=== PATIENT | male | born 1950 | race Caucasian/White ===

== ENCOUNTER 2016-04-24 11:59 | Observation (INO) | payer MEDICARE ==
[~2016-04-24] VITALS: Ht 177.8 cm; Wt 74.0 kg
[2016-04-24 12:04] VITALS: BP 163/80; PULSE 72; RESP 20; TEMP 97.4; O2SAT 99
--- NOTE | 2016-04-24 14:23 | PD ---
HPI Chief Complaint: Edema Stated Complaint: EVAC/MEDICAL Time Seen by Provider: 14:23 Travel History International Travel<30 days: No Contact w/Intl Traveler<30days: No Known affected area: No History of Present Illness HPI 66-year-old male who is an overall poor historian and hard of hearing, presents emergency department for evaluation of swollen lower extremities and swollen testicles worsening over the last 4 days. Patient states that he has been taking Lasix 80 mg daily to help with the edema but it has not seemed to improve. He denies any significant pain. He has intermittent shortness of breath with activity but states this is normal for him. No chest pain or tightness. No recent illnesses, fever, or chills. Patient repeats frequently that he was hospitalized here in February and again in March however medical record does not support this. Patient also mentions [facility] but does not provide information on why he is involved with hospice. Denies any urinary symptoms. Reports no nausea or vomiting. He has no other symptoms to report. He is requesting a sandwich and something to drink. History Past Medical History Medical History: Denies Significant Hx Social History Alcohol Use: No Tobacco Use: No Allergies-Medications (Allergen,Severity, Reaction): Coded Allergies: UNOBTAINABLE (Unverified , 04/24/16) Reported Meds & Prescriptions Reported Meds & Active Scripts Active Reported Mapap (Acetaminophen) 325 Mg Tab 650 Mg PO Q6HR PRN Lasix (Furosemide) 40 Mg Tab 40 Mg PO DAILY Lisinopril 5 Mg Tab 5 Mg PO DAILY Aspirin EC (Aspirin) 81 Mg Tabdr 81 Mg PO DAILY Coreg (Carvedilol) 3.125 Mg Tab 3.125 Mg PO BID Review of Systems Except as stated in HPI: all other systems reviewed are Neg Physical Exam Exam Limitations: Poor Historian Narrative GENERAL: Well nourished, elderly male patient, sitting in his wheelchair with a bizarre affect; head phones in place with a microphone assistive hearing device ; in no acute distress SKIN: Warm and dry. HEAD: Atraumatic. Normocephalic. EYES: Pupils equal and round. No scleral icterus. No injection or drainage. ENT: No nasal bleeding or discharge. Mucous membranes pink and moist. NECK: Trachea midline. No JVD. CARDIOVASCULAR: Regular rate and rhythm. No murmur appreciated. RESPIRATORY: No accessory muscle use. Coarse, diminished. Breath sounds equal bilaterally. GENITOURINARY: Assessment in presence of female RN. Testes descended bilaterally with moderate edema. No lesions or erythema. GASTROINTESTINAL: Abdomen soft, non-tender, nondistended. Hepatic and splenic margins not palpable. MUSCULOSKELETAL: No obvious deformities. No clubbing. No cyanosis. 2+ lower extremity edema with mild erythema. Distal pulses are palpable.. PSYCHIATRIC: Bizarre mood and affect Data Data Last Documented VS Vital Signs Date Time Temp Pulse Resp B/P Pulse Ox O2 Delivery O2 Flow Rate FiO2 04/24/16 18:03 76 17 174/99 100 Room Air 04/24/16 12:04 97.4 Orders Complete Blood Count With Diff (04/24/16 14:23) Basic Metabolic Panel (Bmp) (04/24/16 14:23) B-Type Natriuretic Peptide (04/24/16 14:23) Act Partial Throm Time (Ptt) (04/24/16 14:23) Prothrombin Time / Inr (Pt) (04/24/16 14:23) Ckmb (Isoenzyme) Profile (04/24/16 14:23) Troponin I (04/24/16 14:23) Urinalysis - C+S If Indicated (04/24/16 14:23) Electrocardiogram (04/24/16 14:23) Chest, Single Ap (04/24/16 14:23) Us Testicles W Doppler (04/24/16 ) Furosemide Inj (Lasix Inj) (04/24/16 17:30) Admit Order (Ed Use Only) (04/24/16 18:31) Place In Observation (04/24/16 ) Vital Signs (Adult) Q4H (04/24/16 18:31) ^ Linen Room Attendant / Telemetry (04/24/16 18:31) Intake + Output MARIE.Q8H (04/24/16 18:31) ^ Restrictions (04/24/16 18:31) Diet Heart Healthy (04/24/16 Dinner) Diet 1800 Ada Cons Carb (04/24/16 Dinner) Electrolyte Panel (Lytes) (04/25/16 06:00) Magnesium (Mg) (04/24/16 18:31) Hepatic Functional Panel (04/24/16 18:31) Troponin I (04/24/16 18:31) Troponin I (04/25/16 00:31) Echo 2d Comp W/Dopp(Routine) (04/24/16 ) Resp Oxygen Jameson C Titrat 1-4 L (04/24/16 ) Sodium Chloride 0.9% Flush (Ns Flush) (04/24/16 18:45) Sodium Chloride 0.9% Flush (Ns Flush) (04/24/16 21:00) Furosemide Inj (Lasix Inj) (04/25/16 09:00) Heparin Inj (Heparin Inj) (04/24/16 18:45) Scd Bilateral/Knee High MARIE.BID (04/24/16 18:31) Labs Laboratory Tests Test 04/24/16 14:20 Prothrombin Time 11.9 SEC Prothromb Time International 1.1 RATIO Ratio Activated Partial 27.4 SEC Thromboplast Time Sodium Level 132 MEQ/L Potassium Level 4.4 MEQ/L Chloride Level 98 MEQ/L Carbon Dioxide Level 26.0 MEQ/L Anion Gap 8 MEQ/L Blood Urea Nitrogen 38 MG/DL Creatinine 1.38 MG/DL Estimat Glomerular Filtration 51 ML/MIN Rate Random Glucose 287 MG/DL Calcium Level 9.2 MG/DL Total Creatine Kinase 78 U/L Troponin I 0.02 NG/ML B-Type Natriuretic Peptide 1675 PG/ML MDM Medical Decision Making Medical Screen Exam Complete: Yes Emergency Medical Condition: Yes Medical Record Reviewed: Yes Differential Diagnosis Fluid overload versus electrolyte abnormality versus hydrocele versus varicocele versus testicular torsion versus hernia Narrative Course 66-year-old male presents to the emergency department for evaluation of lower extremity edema and testicular swelling worsening over last 4 days. He is also requesting a sandwich and something to drink. She has a bizarre affect and is very hard of hearing. He is a poor historian. Workup is initiated in triage. Once a medical bed becomes available, patient will be transferred to that pod for care. 1610 I spoke with Laura from [facility]. She informs me that pt was discharged from Hospice service last week because he had plans to move to [place] where his family is, but pt did not get on the bus to go. She said pt was on hospice service due to end stage COPD and the patient has history of non- compliance. She provides me with a sister's (Agata) phone number [phone]. Chest x-ray shows moderate pleural effusion with minimal failure on the left. CBC is still pending. BNP is with hyponatremia 132. BUN is elevated at 38. Creatinine is 1.38. Glucose is 257. BNP is 1675. I spoke with Dr. Abreu. CBC has yet to be complete despite multiple requests and call to the lab. Patient will be admitted observation to [facility]. Diagnosis Primary Impression: Bilateral lower extremity edema Additional Impressions: Testicle swelling Congestive heart failure Qualified Code: I50.9 - Acute on chronic congestive heart failure, unspecified congestive heart failure type Condition: Stable Yessenia Valderrama Apr 24, 2016 14:23
[2016-04-24 14:49] LABS: APTT (PATIENT) 27.4 SEC (24.3-30.1); INTERNATIONAL NORMALIZED RATIO 1.1 RATIO; PROTHROMBIN TIME - PATIENT 11.9 SEC (9.8-11.6)
[2016-04-24 14:54] LABS: POTASSIUM 4.4 MEQ/L (3.5-5.1)
--- NOTE | 2016-04-24 15:04 | RADRPT ---
EXAM DATE/TIME: 04/24/2016 14:33 [facility] COMPARISON: No previous studies available for comparison. INDICATIONS : Short of breath. Lower extremity edema. MEDICAL HISTORY : None. SURGICAL HISTORY : None. ENCOUNTER: Initial ACUITY: 1 day PAIN SCORE: 0/10 LOCATION: Bilateral chest Moderate effusion is present on the left. The right lung is clear. The heart is minimally enlarged. There is mild pulmonary congestion. CONCLUSION: Moderate pleural effusion on the left with minimal failure.. Erickson Steiner MD FACR on April 24, 2016 at 15:01 Board Certified Radiologist. This report was verified electronically.
--- NOTE | 2016-04-24 16:14 | EKG ---
Date Performed: 04/24/2016 Time Performed: 14:36:29 PTAGE: 66 years EKG: Sinus rhythm POSSIBLE LEFT ATRIAL ENLARGEMENT LOW QRS VOLTAGE IN EXTREMITY LEADS ANTEROLATERAL MYOCARDIAL INFARCT ION ABNORMAL ECG I would repeat electrocardiogram to make sure that there is no limb lead reversal. NO PREVIOUS TRACING DOCTOR: Catracho Mena Interpretating Date/Time 04/24/2016 16:12:18
--- NOTE | 2016-04-24 17:26 | RADRPT ---
EXAM DATE/TIME: 04/24/2016 15:57 [facility] COMPARISON: No previous studies available for comparison. INDICATIONS : Testicular swelling. MEDICAL HISTORY : Cardiac and respiratory disorders. Testicular swelling. SURGICAL HISTORY : None. ENCOUNTER: Initial ACUITY: 1 day PAIN SCORE: 6/10 LOCATION: Bilateral scrotum. MEASUREMENTS: RIGHT TESTICLE: 2.3 x 4.0 x 4.5 cm LEFT TESTICLE: 5.2 x 3.2 x 5.3 cm FINDINGS: RIGHT TESTICLE: Diffusely moderately heterogeneous echotexture. Relatively diminished Doppler blood flow. Small hydro kristen. LEFT TESTICLE: Mildly heterogeneous echotexture. Intact Doppler flow. Small hydrocele. SCROTUM: Within normal limits. CONCLUSION: No evidence of acute torsion. Diffusely heterogeneous testicular echotexture, particularly on the right without discrete mass. Diff erential considerations would include chronic benign appearance related to prior insult, orchitis, di ffuse neoplastic infiltration. Correlation and followup recommended as indicated. José Manuel Smith MD on April 24, 2016 at 17:18 Board Certified Radiologist. This report was verified electronically.
[2016-04-24] MEDS ORDERED: FUROSEMIDE 40 MG/4 ML VIAL IV PUSH ONE (17:30)
[2016-04-24 18:03] VITALS: BP 174/99; PULSE 76; RESP 17; O2SAT 100
[2016-04-24] MEDS ORDERED: ASPI81TA11 PO (18:28)
[2016-04-24] MEDS ORDERED: CARV3.125 PO (18:28)
[2016-04-24] MEDS ORDERED: MAPA325T PO (18:28)
[2016-04-24] MEDS ORDERED: LISI-519 PO (18:28)
[2016-04-24] MEDS ORDERED: FURO1TAB60 PO (18:28)
[2016-04-24] MEDS ORDERED: SODIUM CHLORIDE 0.9% FLUSH 5 ML FLUSH IVF PRN (18:45)
[2016-04-24 18:48] LABS: AUTOMATED NEUTROPHIL # 5.3 TH/MM3 (1.8-7.7); BASOPHIL # 0.1 TH/MM3 (0-0.2); BASOPHIL % 1.2 % (0.0-2.0); EOSINOPHIL # 0.3 TH/MM3 (0-0.4); EOSINOPHIL % 4.1 % (0.0-4.0); HEMATOCRIT 32.6 % (39.0-51.0); HEMO FLAGS DIFF FINAL; LYMPH % 14.8 % (9.0-44.0); LYMPHOCYTE # 1.1 TH/MM3 (1.0-4.8); MEAN CELL VOLUME 77.2 FL (80.0-100.0); MEAN CORPUSCULAR HEMOGLOBIN 25.2 PG (27.0-34.0); MEAN CORPUSCULAR HGB CONC 32.6 % (32.0-36.0); MONO % 7.8 % (0.0-8.0); NEUT % 72.1 % (16.0-70.0); PLATELET COUNT 302 TH/MM3 (150-450); RED BLOOD COUNT 4.23 MIL/MM3 (4.50-5.90); RED CELL DISTRIBUTION WIDTH 17.7 % (11.6-17.2); WHITE BLOOD COUNT 7.4 TH/MM3 (4.0-11.0)
[2016-04-24 19:03] LABS: BLOOD, URINE NEG (NEG); COMMENT (UR) CULT NOT INDICATED; CULTURE IF INDICATED CULT NOT INDICATED; GLUCOSE,URINE 300 mg/dL (NEG); HYALINE CAST, URINE 1 /lpf (RARE); KETONE, URINE NEG (NEG); NITRITE,URINE NEG (NEG); PH, URINE 5.5 (5.0-8.5); SQUAMOUS EPITHELIAL CELL URINE 1 /hpf (0-5); URINE COLOR YELLOW (YELLW/STRAW)
--- NOTE | 2016-04-24 19:31 | PD ---
Physical Exam Narrative GENERAL: Well-nourished, well-developed patient. SKIN: Warm and dry. HEAD: Normocephalic EYES: No injection or drainage. ENT: No nasal drainage noted. NECK: Supple, trachea midline. CARDIOVASCULAR: Regular rate and rhythm RESPIRATORY: No increased effort. No accessory muscle use. NEUROLOGICAL: Awake and alert. Moves all extremities. Normal speech. Data Data Last Documented VS Vital Signs Date Time Temp Pulse Resp B/P Pulse Ox O2 Delivery O2 Flow Rate FiO2 04/24/16 18:03 76 17 174/99 100 Room Air 04/24/16 12:04 97.4 Orders Complete Blood Count With Diff (04/24/16 14:23) Basic Metabolic Panel (Bmp) (04/24/16 14:23) B-Type Natriuretic Peptide (04/24/16 14:23) Act Partial Throm Time (Ptt) (04/24/16 14:23) Prothrombin Time / Inr (Pt) (04/24/16 14:23) Ckmb (Isoenzyme) Profile (04/24/16 14:23) Troponin I (04/24/16 14:23) Urinalysis - C+S If Indicated (04/24/16 14:23) Electrocardiogram (04/24/16 14:23) Chest, Single Ap (04/24/16 14:23) Us Testicles W Doppler (04/24/16 ) Furosemide Inj (Lasix Inj) (04/24/16 17:30) Admit Order (Ed Use Only) (04/24/16 18:31) Place In Observation (04/24/16 ) Vital Signs (Adult) Q4H (04/24/16 18:31) ^ Rotary Dryer Operator / Telemetry (04/24/16 18:31) Intake + Output MARIE.Q8H (04/24/16 18:31) ^ Restrictions (04/24/16 18:31) Diet Heart Healthy (04/24/16 Dinner) Diet 1800 Ada Cons Carb (04/24/16 Dinner) Electrolyte Panel (Lytes) (04/25/16 06:00) Magnesium (Mg) (04/24/16 18:31) Hepatic Functional Panel (04/24/16 18:31) Troponin I (04/24/16 18:31) Troponin I (04/25/16 00:31) Echo 2d Comp W/Dopp(Routine) (04/24/16 ) Resp Oxygen Jameson C Titrat 1-4 L (04/24/16 ) Sodium Chloride 0.9% Flush (Ns Flush) (04/24/16 18:45) Sodium Chloride 0.9% Flush (Ns Flush) (04/24/16 21:00) Furosemide Inj (Lasix Inj) (04/25/16 09:00) Heparin Inj (Heparin Inj) (04/24/16 21:00) Scd Bilateral/Knee High MARIE.BID (04/24/16 18:31) Labs Laboratory Tests Test 04/24/16 04/24/16 14:20 18:25 Prothrombin Time 11.9 SEC Prothromb Time International 1.1 RATIO Ratio Activated Partial 27.4 SEC Thromboplast Time Sodium Level 132 MEQ/L Potassium Level 4.4 MEQ/L Chloride Level 98 MEQ/L Carbon Dioxide Level 26.0 MEQ/L Anion Gap 8 MEQ/L Blood Urea Nitrogen 38 MG/DL Creatinine 1.38 MG/DL Estimat Glomerular Filtration 51 ML/MIN Rate Random Glucose 287 MG/DL Calcium Level 9.2 MG/DL Total Creatine Kinase 78 U/L Troponin I 0.02 NG/ML B-Type Natriuretic Peptide 1675 PG/ML Urine Color YELLOW Urine Turbidity CLEAR Urine pH 5.5 Urine Specific [place] 1.013 Urine Protein TRACE mg/dL Urine Glucose (UA) 300 mg/dL Urine Ketones NEG mg/dL Urine Occult Blood NEG Urine Nitrite NEG Urine Bilirubin NEG Urine Urobilinogen LESS THAN 2.0 MG/DL Urine Leukocyte Esterase NEG Urine WBC LESS THAN 1 /hpf Urine Squamous Epithelial 1 /hpf Cells Urine Hyaline Casts 1 /lpf Microscopic Urinalysis Comment CULT NOT INDICATED [facility] Supervised Visit with SARAH: Yes Interpretation(s) CBC & BMP Diagram 04/24/16 14:20 Last 24 hours Impressions Chest X-Ray 04/24/16 1423 Signed Impressions: Service Date/Time: Sunday, April 24, 2016 14:33 - CONCLUSION: Moderate pleural effusion on the left with minimal failure.. Erickson Steiner MD FACR Scrotum Ultrasound 04/24/16 0000 Signed Impressions: Service Date/Time: Sunday, April 24, 2016 15:57 - CONCLUSION: No evidence of acute torsion. Diffusely heterogeneous testicular echotexture, particularly on the right without discrete mass. Differential considerations would include chronic benign appearance related to prior insult, orchitis, diffuse neoplastic infiltration. Correlation and followup recommended as indicated. José Manuel Smith MD bnp significantly elevated Narrative Course I, Dr. roy, have reviewed the advance practice practitioner's documentation and am in agreement, met with the patient face to face, made the diagnosis, and the medical decision making was done by me. *My assessment and Findings: 66-year-old male presents with bilateral lower extremity edema. He presents in CHF exacerbation and will be admitted for further care. Patient agrees to this and questions were answered. ordered lasix and nitro paste Diagnosis Primary Impression: Bilateral lower extremity edema Additional Impressions: Testicle swelling Congestive heart failure Qualified Code: I50.9 - Acute on chronic congestive heart failure, unspecified congestive heart failure type Pleural effusion Admitting Information Admitting Physician Requests: Observation Condition: Stable Radha Roy MD Apr 24, 2016 19:31
[2016-04-24] MEDS ORDERED: NITROGLYCERIN 2% OINT 1 GM PACKET TOP ONE (19:45)
--- NOTE | 2016-04-24 20:13 | HHI.HP ---
[facility] No Primary Care Physician Admission Diagnosis CHF EXACERBATION Diagnoses: Chief Complaint: Bilateral lower extremity and testical swelling Travel History International Travel<30 Days: No Contact w/Intl Traveler <30 Da: No Traveled to Known Affected Are: No History of Present Illness 66 y/o male is a poor historian and was unable to provide his history, he kept saying just call my sister. Spoke with the sister over the phone and she states he recently had a valve replacement and cannot And came to [place] in late January for the winter. While in [place] he had some complications and was taken to [facility] in [place], was found to be in CHF and COPD exacerbation. He was discharged from there and sent [facility] rehabilitation and then was discharged home. Up until last week he was on hospice with [facility] apparently for end-stage COPD, patient's wishes were not to be in a nursing facility, and family was trying to get him to move to [place]. Hospice was stopped one week ago so patient could move to [place], according to the patient's sister then lost contact with him for the last few days and he apparently never got on the bus to move. Patient is very hard of hearing and uses a amplifier in headphones to communicate, at this time he was unable to answer any questions and was not cooperative. Patient's sister stated she would like to speak with somebody regarding options placement once patient is discharged. According to the ER reports patient came in complaining of swollen lower extremities and bilateral testicles for the last 4 days, currently on Lasix at home with no improvement. Review of Systems ROS Limitations: Uncooperative, Poor Historian (patient is uncooperative and a poor historian at this time and is unable to provide ROS) Past Family Social History Past Medical History Per patient's sister: CHF Hypertension COPD Past Surgical History Per patient's sister: Valve replacement 2015 Reported Medications Current Medications Medications (Trade) Dose Ordered Sig/Willie Route Start Time Stop Time Status Last Admin (NS Flush) 2 ml UNSCH PRN IVF 04/24/16 18:45 (NS Flush) 2 ml BID IVF 04/24/16 21:00 (Lasix Inj) 40 mg BID@,18 IVP 04/25/16 09:00 (Heparin Inj) 5,000 units Q8H SQ 04/24/16 21:00 Allergies: Coded Allergies: UNOBTAINABLE (Unverified , 04/24/16) Active Ordered Medications Current Medications Medications (Trade) Dose Ordered Sig/Willie Route Start Time Stop Time Status Last Admin (NS Flush) 2 ml UNSCH PRN IVF 04/24/16 18:45 (NS Flush) 2 ml BID IVF 04/24/16 21:00 (Lasix Inj) 40 mg BID@,18 IVP 04/25/16 09:00 (Heparin Inj) 5,000 units Q8H SQ 04/24/16 21:00 Family History According to sister there is no family history Social History According to the sister patient does not use use tobacco alcohol or illicit drugs. Physical Exam Vital Signs Vital Signs Date Time Temp Pulse Resp B/P Pulse Ox O2 Delivery O2 Flow Rate FiO2 04/24/16 18:03 76 17 174/99 100 Room Air 04/24/16 12:04 97.4 72 20 163/80 99 Room Air Physical Exam GENERAL: This is a well-nourished, uncooperative patient. SKIN: No rashes, ecchymoses or lesions. Cool and dry. HEAD: Atraumatic. Normocephalic. EYES: Pupils equal round and reactive. ENT: Nose without bleeding, purulent drainage or septal hematoma. Airway patent. NECK: Trachea midline. No JVD CARDIOVASCULAR: Regular rate and rhythm without murmurs, gallops, or rubs. RESPIRATORY: Clear to auscultation. Breath sounds equal bilaterally. No wheezes , rales, or rhonchi. GASTROINTESTINAL: Abdomen soft, non-tender, nondistended. MUSCULOSKELETAL: +2 pitting bilateral lower extremity edema. No joint tenderness , effusion, or edema noted. No calf tenderness. NEUROLOGICAL: Awake and uncooperative. Poor historian, hard of hearing. Normal speech. Laboratory Laboratory Tests Test 04/24/16 04/24/16 04/24/16 14:20 18:25 18:37 Prothrombin Time 11.9 Prothromb Time International 1.1 Ratio Activated Partial 27.4 Thromboplast Time Sodium Level 132 Potassium Level 4.4 Chloride Level 98 Carbon Dioxide Level 26.0 Anion Gap 8 Blood Urea Nitrogen 38 Creatinine 1.38 Estimat Glomerular Filtration 51 Rate Random Glucose 287 Calcium Level 9.2 Total Creatine Kinase 78 Troponin I 0.02 B-Type Natriuretic Peptide 1675 Urine Color YELLOW Urine Turbidity CLEAR Urine pH 5.5 Urine Specific [place] 1.013 Urine Protein TRACE Urine Glucose (UA) 300 Urine Ketones NEG Urine Occult Blood NEG Urine Nitrite NEG Urine Bilirubin NEG Urine Urobilinogen LESS THAN 2.0 Urine Leukocyte Esterase NEG Urine WBC LESS THAN 1 Urine Squamous Epithelial 1 Cells Urine Hyaline Casts 1 Microscopic Urinalysis Comment CULT NOT INDICATED White Blood Count 7.4 Red Blood Count 4.23 Hemoglobin 10.6 Hematocrit 32.6 Mean Corpuscular Volume 77.2 Mean Corpuscular Hemoglobin 25.2 Mean Corpuscular Hemoglobin 32.6 Concent Red Cell Distribution Width 17.7 Platelet Count 302 Mean Platelet Volume 7.9 Neutrophils (%) (Auto) 72.1 Lymphocytes (%) (Auto) 14.8 Monocytes (%) (Auto) 7.8 Eosinophils (%) (Auto) 4.1 Basophils (%) (Auto) 1.2 Neutrophils # (Auto) 5.3 Lymphocytes # (Auto) 1.1 Monocytes # (Auto) 0.6 Eosinophils # (Auto) 0.3 Basophils # (Auto) 0.1 CBC Comment DIFF FINAL Differential Comment Result Diagram: 04/24/16 1837 04/24/16 1420 Imaging Last Impressions Chest X-Ray 04/24/16 1423 Signed Impressions: Service Date/Time: Sunday, April 24, 2016 14:33 - CONCLUSION: Moderate pleural effusion on the left with minimal failure.. Erickson Steiner MD FACR Scrotum Ultrasound 04/24/16 0000 Signed Impressions: Service Date/Time: Sunday, April 24, 2016 15:57 - CONCLUSION: No evidence of acute torsion. Diffusely heterogeneous testicular echotexture, particularly on the right without discrete mass. Differential considerations would include chronic benign appearance related to prior insult, orchitis, diffuse neoplastic infiltration. Correlation and followup recommended as indicated. José Manuel Smith MD Assessment and Plan Problem List: (1) Acute exacerbation of CHF (congestive heart failure) ICD Code: I50.9 Status: Acute (2) Testicle swelling ICD Code: N50.89 Status: Acute (3) Bilateral lower extremity edema ICD Code: R60.0 Status: Acute Assessment and Plan 66-year-old man who is a poor historian with a history of CHF, hypertension, COPD presented with: CHF exacerbation Images reviewed: Chest x-ray shows moderate pleural effusion on the left with minimal failure -Lasix 40 mg IV given in the ED, then 40 mg IV ordered BID -Fluid restriction -2-D echo pending -Restart home medications Coreg Testicular swelling Images reviewed: Scrotal ultrasound shows No evidence of acute torsion. Diffusely heterogeneous testicular echotexture, particularly on the right without discrete mass. Differential considerations would include chronic benign appearance related to prior insult, orchitis, diffuse neoplastic infiltration. Correlation and followup recommended as indicated. -Consult urology recommendations Lower extremity edema, likely due to CHF Labs reviewed BNP 1675 -Continue diuretics DVT prophylaxis: Heparin Consult placed to case management for assistance in placement. Written by Franci ROMERO, acting as scribe for Dr. Webster on 04/24/16 at 2103. The documentation accurately reflects the work performed [id number] and decisions made by me and the physician Dr Webster on 04/24/16. The documentation accurately reflects the work performed [id number] by me Dr Webster on 04/24/16. Discussed Condition With pt, nurse, ED physician Franci Desouza Apr 24, 2016 20:13 Karine Webster MD Apr 24, 2016 23:22
[2016-04-24] MEDS: SODIUM CHLORIDE 0.9% FLUSH 5 ML FLUSH IVF SCH (21:46)
[2016-04-24] MEDS: HEPARIN SODIUM - SQ 10,000 UNITS/ML VIAL SQ SCH (21:46)
[2016-04-24 21:49] VITALS: BP 128/75; PULSE 82; RESP 18; O2SAT 100
[2016-04-24] MEDS: CARVEDILOL 3.125 MG TAB PO SCH (22:31)
[2016-04-24 23:30] LABS: INDIRECT BILIRUBIN 0.6 MG/DL (0.0-0.8); MAGNESIUM 1.9 MG/DL (1.5-2.5); TOTAL BILIRUBIN ADULT 0.7 MG/DL (0.2-1.0)
[2016-04-24 23:54] VITALS: BP 137/64; PULSE 78; RESP 20; TEMP 98.2; O2SAT 98
[2016-04-25] VITALS (9 sets, daily range): BP systolic 104–164; BP diastolic 54–90; PULSE 51–85; RESP 16–20; TEMP 96–98.6; O2SAT 93–100
[2016-04-25] MEDS: HEPARIN SODIUM - SQ 10,000 UNITS/ML VIAL SQ SCH ×3 (04:48→21:44)
[2016-04-25 05:01] LABS: BICARBONATE 23.9 MEQ/L (21.0-32.0); POTASSIUM 4.1 MEQ/L (3.5-5.1)
[2016-04-25] MEDS: CARVEDILOL 3.125 MG TAB PO SCH ×2 (09:06→21:44)
[2016-04-25] MEDS: FUROSEMIDE 40 MG/4 ML VIAL IVP SCH ×2 (09:06→17:30)
[2016-04-25] MEDS: SODIUM CHLORIDE 0.9% FLUSH 5 ML FLUSH IVF SCH ×2 (09:06→21:46)
--- NOTE | 2016-04-25 11:46 | HHI.PR ---
Subjective Remarks Patient has strange behavior when I entered the room "I'm smart, you wearing white coat and a status, and you must have had more training than the others" Poor historian, patient distracted while giving history on many occasions, however I could understand from him that he had scrotal swelling with a leg swelling since last February, and that his primary care physician is in managing his diuretic Today sitting on the edge of the bed, having his headphones on, doesn't seem to be in distress, denied chest pain or short of breath Objective Vitals Vital Signs Date Time Temp Pulse Resp B/P Pulse Ox O2 Delivery O2 Flow Rate FiO2 04/25/16 08:52 97.3 77 16 143/83 95 04/25/16 04:07 98.6 79 20 120/69 96 04/25/16 03:59 75 04/24/16 23:54 98.2 78 20 137/64 98 04/24/16 21:49 82 18 128/75 100 Room Air 04/24/16 18:03 76 17 174/99 100 Room Air 04/24/16 12:04 97.4 72 20 163/80 99 Room Air I/O 04/24/16 04/24/16 04/24/16 04/25/16 04/25/16 04/25/16 06:59 14:59 22:59 06:59 14:59 22:59 Intake Total 240 ml Output Total 150 ml 350 ml Balance -150 ml -110 ml Intake Oral 240 ml Output Urine Total 150 ml 350 ml # Voids 1 Result Diagram: 04/24/16 1837 04/25/16 0422 Objective Remarks GENERAL: This is a well-nourished, well-developed patient, in no apparent distress. SKIN: No rashes, warm and dry HEAD: Atraumatic. Normocephalic. EYES: Pupils equal round and reactive. Extraocular motions intact. No scleral icterus. ENT: Nose without bleeding, or drainage, Airway patent. NECK: Trachea midline. Supple CARDIOVASCULAR: Regular rate and rhythm without murmurs, gallops, or rubs. RESPIRATORY: Fair air entry bilaterally. No wheezes, rales, or rhonchi. GASTROINTESTINAL: Abdomen soft, non-tender, nondistended. Positive bowel sounds MUSCULOSKELETAL: +2 pitting edema. Bilateral lower extremity Pedal pulses appreciated NEUROLOGICAL: Awake and alert. Moves all extremity. Normal speech.no focal neurological deficit : Scrotum swelling, nontender A/P Problem List: (1) Acute exacerbation of CHF (congestive heart failure) ICD Code: I50.9 Status: Acute (2) Testicle swelling ICD Code: N50.89 Status: Acute (3) Bilateral lower extremity edema ICD Code: R60.0 Status: Acute Assessment and Plan 66-year-old man who is a poor historian with a history of CHF, hypertension, COPD presented with: CHF exacerbation with anasarca Images reviewed: Chest x-ray shows moderate pleural effusion on the left with minimal failure -Lasix 40 mg IV given in the ED, then 40 mg IV ordered BID -Fluid restriction -2-D echo pending -Restart home medications Coreg -Monitor BMP and BNP daily Scrotum swelling Images reviewed: Scrotal ultrasound shows No evidence of acute torsion. Diffusely heterogeneous testicular echotexture, particularly on the right without discrete mass. Due to chronicity and not improving on outpatient diuresis -Consult urology recommendations Lower extremity edema, likely due to CHF Labs reviewed BNP 1675 -Continue diuretics, daily monitor BMP and BNP DVT prophylaxis: Heparin Consult placed to case management for assistance in placement. Windy Abreu MD Apr 25, 2016 11:46
--- NOTE | 2016-04-25 15:39 | PD.CONS ---
HPI Service Urology Consult Requested By Reason for Consult Scrotal swelling Primary Care Physician No Primary Care Physician Diagnosis: (1) Acute exacerbation of CHF (congestive heart failure) ICD Code: I50.9 (2) Testicle swelling ICD Code: N50.89 (3) Bilateral lower extremity edema ICD Code: R60.0 History of Present Illness Consulted to evaluate this 66 year-old gentleman admitted with congestive heart failure for evaluation regarding scrotal swelling. Patient apparently has had problems with swelling of his lower extremities and scrotum for several days prior to admission. Patient had been taken 80 mg of Lasix daily for generalized edema without improvement. A scrotal ultrasound study was performed that demonstrated a heterogeneous echotexture to both testicles of indeterminate significance. There was no evidence of discrete masses. There was no evidence of testicular torsion or hydrocele formation. Review of Systems ROS Limitations: Poor Historian Constitutional: DENIES: Fever, Chills Gastrointestinal: DENIES: Abdominal pain Genitourinary: DENIES: Urinary frequency, Urinary incontinence, Urgency, Hematuria, Dysuria Musculoskeletal: DENIES: Back pain Past Family Social History Past Medical History Probable CHF history although denied by patient Past Surgical History Denies any prior significant surgical history Reported Medications Refer to EMR Allergies: Coded Allergies: UNOBTAINABLE (Unverified , 04/24/16) Active Ordered Medications Refer to EMR Family History Reviewed and noncontributory Social History Denies tobacco, alcohol or intravenous drug abuse Physical Exam Vital Signs Vital Signs Date Time Temp Pulse Resp B/P Pulse Ox O2 Delivery O2 Flow Rate FiO2 04/25/16 12:01 97.5 85 18 141/78 98 04/25/16 10:28 93 21 04/25/16 08:52 97.3 77 16 143/83 95 04/25/16 04:07 98.6 79 20 120/69 96 04/25/16 03:59 75 04/24/16 23:54 98.2 78 20 137/64 98 04/24/16 21:49 82 18 128/75 100 Room Air 04/24/16 18:03 76 17 174/99 100 Room Air Physical Exam GENERAL: Appears stated age and in no apparent distress. SKIN: No rashes, ecchymoses or lesions. Cool and dry. HEAD: Atraumatic. Normocephalic. No temporal or scalp tenderness. EYES: Pupils equal round and reactive. Extraocular motions intact. No scleral icterus. No injection or drainage. ENT: Nose without bleeding, purulent drainage or septal hematoma. NECK: Trachea midline. No JVD or lymphadenopathy. Supple, nontender, no meningeal signs. GASTROINTESTINAL: Abdomen soft, non-tender, nondistended. No hepato-splenomegaly , or palpable masses. No guarding. : Normal phallus, scrotum enlarged and edematous, nontender to palpation. MUSCULOSKELETAL: Edema noted to bilateral lower extremities NEUROLOGICAL: Awake and alert. Cranial nerves II through XII intact. Motor and sensory grossly within normal limits. Normal speech. Laboratory Laboratory Tests Test 04/24/16 04/24/16 04/24/16 04/25/16 18:25 18:37 22:25 04:22 Urine Color YELLOW Urine Turbidity CLEAR Urine pH 5.5 Urine Specific [place] 1.013 Urine Protein TRACE Urine Glucose (UA) 300 Urine Ketones NEG Urine Occult Blood NEG Urine Nitrite NEG Urine Bilirubin NEG Urine Urobilinogen LESS THAN 2.0 Urine Leukocyte Esterase NEG Urine WBC LESS THAN 1 Urine Squamous Epithelial 1 Cells Urine Hyaline Casts 1 Microscopic Urinalysis Comment CULT NOT INDICATED White Blood Count 7.4 Red Blood Count 4.23 Hemoglobin 10.6 Hematocrit 32.6 Mean Corpuscular Volume 77.2 Mean Corpuscular Hemoglobin 25.2 Mean Corpuscular Hemoglobin 32.6 Concent Red Cell Distribution Width 17.7 Platelet Count 302 Mean Platelet Volume 7.9 Neutrophils (%) (Auto) 72.1 Lymphocytes (%) (Auto) 14.8 Monocytes (%) (Auto) 7.8 Eosinophils (%) (Auto) 4.1 Basophils (%) (Auto) 1.2 Neutrophils # (Auto) 5.3 Lymphocytes # (Auto) 1.1 Monocytes # (Auto) 0.6 Eosinophils # (Auto) 0.3 Basophils # (Auto) 0.1 CBC Comment DIFF FINAL Differential Comment Magnesium Level 1.9 Total Bilirubin 0.7 Direct Bilirubin 0.1 Indirect Bilirubin 0.6 Aspartate Amino Transf 57 (AST/SGOT) Alanine Aminotransferase 38 (ALT/SGPT) Alkaline Phosphatase 273 Troponin I 0.02 0.02 Total Protein 7.3 Albumin 2.8 Sodium Level 132 Potassium Level 4.1 Chloride Level 98 Carbon Dioxide Level 23.9 Anion Gap 10 Result Diagram: 04/24/16 1837 04/25/16 0422 Imaging Scrotal ultrasound with findings as outlined above Assessment and Plan Assessment and Plan UROLOGIC IMPRESSION: Abnormal findings on US of indeterminant etiology. May be related to longstanding edema. RECOMENDATIONS: #1 Conservative management for now #2 Office f/u in 6 weeks for re-evaluation with repeat scrotal US Harinder Nelson MD Apr 25, 2016 15:39
--- NOTE | 2016-04-25 17:23 | EC ---
Study Study Date:04/25/2016 STUDY CONCLUSIONS SUMMARY - Left ventricle: The cavity size was normal. Wall thickness was normal. Systolic function was moderately to severely reduced. The estimated ejection fraction was in the range of 30% to 35%. Wall motion was normal; there were no regional wall motion abnormalities. - Aortic valve: Valve area: 2.31cm^2(VTI). Valve area: 2.25cm^2 (Vmax). - Mitral valve: A prosthesis was present and functioning normally. The prosthesis had a normal range of motion. The sewing ring appeared normal, had no rocking motion, and showed no evidence of dehiscence. Valve area by continuity equation (using LVOT flow): 0.96cm^2. - Tricuspid valve: Mild-moderate regurgitation. - Pericardium, extracardiac: There was a left pleural effusion. If LV function is below 40, please consider prescribing an ACEI or ARB or document rationale for non-use. PROCEDURE DATA STUDY STATUS: Elective. Procedure: Transthoracic echocardiography. Image quality was good. Scanning was performed from the parasternal, apical, and subcostal acoustic windows. Study completion: The patient tolerated the procedure well. Transthoracic echocardiography. M-mode, complete 2D, complete spectral Doppler, and color Doppler. Height: Height: 70in. Weight: Weight: 162.7lb. Body mass index: BMI: 23.4kg/m^2. Body surface area: BSA: 1.91m^2. Patient status: Inpatient. CARDIAC ANATOMY LEFT VENTRICLE: The cavity size was normal. Wall thickness was normal. Systolic function was moderately to severely reduced. The estimated ejection fraction was in the range of 30% to 35%. Wall motion was normal; there were no regional wall motion abnormalities. AORTIC VALVE: Trileaflet; normal thickness leaflets. Doppler: Transvalvular velocity was within the normal range. There was no stenosis. No regurgitation. Valve area: 2.31cm^2(VTI). Indexed valve area: 1.21cm^2/m^2 (VTI). Valve area: 2.25cm^2 (Vmax). Indexed valve area: 1.18cm^2/m^2 (Vmax). Mean gradient: 2mm Hg (S). AORTA: Aortic root: The aortic root was normal in size. MITRAL VALVE: A prosthesis was present and functioning normally. The prosthesis had a normal range of motion. The sewing ring appeared normal, had no rocking motion, and showed no evidence of dehiscence. Leaflet separation was normal. Doppler: Transvalvular velocity was within the normal range. There was no evidence for stenosis. No regurgitation. Valve area by continuity equation (using LVOT flow): 0.96cm^2. Indexed valve area by continuity equation (using LVOT flow): 0.5cm^2/m^2. Mean gradient: 5mm Hg (D). Peak gradient: 14mm Hg (D). LEFT ATRIUM: The atrium was normal in size. RIGHT VENTRICLE: The cavity size was normal. Wall thickness was normal. PULMONIC VALVE: Doppler: Transvalvular velocity was within the normal range. There was no evidence for stenosis. No regurgitation. TRICUSPID VALVE: Structurally normal valve. Doppler: Transvalvular velocity was within the normal range. Mild-moderate regurgitation. PULMONARY ARTERY: The main pulmonary artery was normal-sized. Systolic pressure was within the normal range. RIGHT ATRIUM: The atrium was normal in size. PERICARDIUM: There was no pericardial effusion. SYSTEMIC VEINS: Inferior vena cava: The vessel was normal in size. Pleura: There was a left pleural effusion. Patient weight: 162.7lb _Ejection fraction:_ 65-75% _Fractional shortening:_ 32% up to 5Kg 5-11.5Kg 11.6-22.9Kg 23-45Kg 45-57Kg Aortic Root 7-13 <17 13-22 17-27 17-27 LA diam 6-13 <23 24-38 33-47 37-40 RVID 10-17 7-15 7-15 7-18 8-17 LVIDd 12-22 <32 24-38 33-47 37-40 LVPW 2-4 3-6 5-7 6-8 7-8 IVS 2-4 3-6 5-7 6-8 7-8 BASIC MEASUREMENTS ADULT NORMAL Left ventricle LV internal dimension, ED, chordal 50.9 mm 43-52 level, PLAX LV internal dimension, ES, chordal *45.1 mm 23-38 level, PLAX Fractional shortening, chordal level, *11 % >29 PLAX LV posterior wall thickness, ED 7.11 mm IVS/LVPW ratio, ED *1.37 <1.3 Ventricular septum Septal thickness, ED 9.77 mm Aortic valve Leaflet separation 19 mm 15-26 Aorta Root diameter, ED 31 mm Right ventricle RV internal dimension, ED, PLAX 37.9 mm 19-38 BASIC MEASUREMENTS ADULT NORMAL Aortic valve Leaflet separation 19 mm 15-26 DOPPLER MEASUREMENTS ADULT NORMAL Aortic valve Peak velocity, S 86.9 cm/s Mean velocity, S 62.3 cm/s VTI, S 39.8 cm Mean gradient, S 2 mm Hg Valve area, VTI 2.31 cm^2 Valve area index, VTI 1.21 cm^2/m^2 Valve area, Vmax 2.25 cm^2 Valve area index, Vmax 1.18 cm^2/m^2 Mitral valve Peak E-wave velocity 175 cm/s Peak A-wave velocity 71.4 cm/s Mean velocity, D 103 cm/s Mean gradient, D 5 mm Hg Peak gradient, D 14 mm Hg Peak E/A ratio 2.5 Valve area, LVOT continuity 0.96 cm^2 Valve area index, LVOT continuity 0.5 cm^2/m^2 Tricuspid valve Regurgitant peak velocity 376 cm/s Peak RV-RA gradient, S 57 mm Hg Pulmonic valve Peak velocity, S 35.5 cm/s LEGEND: Mean values are shown as u=mean value. Asterisk (*) henley values outside specified normal range. Prepared and signed by Mayank Magallon [id number]
[2016-04-26] VITALS (8 sets, daily range): BP systolic 118–148; BP diastolic 58–79; PULSE 74–89; RESP 18–22; TEMP 96.1–98.7; O2SAT 94–99
[2016-04-26] MEDS: HEPARIN SODIUM - SQ 10,000 UNITS/ML VIAL SQ SCH ×3 (05:21→22:10)
[2016-04-26] MEDS: ASPIRIN EC 81 MG TABEC PO SCH (09:25)
[2016-04-26] MEDS: CARVEDILOL 3.125 MG TAB PO SCH ×2 (09:25→22:09)
[2016-04-26] MEDS: SODIUM CHLORIDE 0.9% FLUSH 5 ML FLUSH IVF SCH ×2 (09:26→22:10)
[2016-04-26] MEDS: FUROSEMIDE 40 MG/4 ML VIAL IVP SCH ×2 (09:26→17:01)
--- NOTE | 2016-04-26 11:17 | HHI.PR ---
Subjective Remarks patient sitting on the bed he is having headphones on, is kind of talking to the wall, when I talked to her E partially has a question, positive time is nonecoherent Denied chest pain, short of breath, we'll continue with diuresis, seen by urology recommended follow-up as an outpatient Objective Vitals Vital Signs Date Time Temp Pulse Resp B/P Pulse Ox O2 Delivery O2 Flow Rate FiO2 04/26/16 09:15 97.7 76 18 138/75 97 04/26/16 04:30 96.1 89 18 148/75 94 04/26/16 02:24 80 04/26/16 00:11 97.1 78 22 136/79 94 04/25/16 19:37 96.0 82 18 137/81 100 04/25/16 16:32 97.6 84 16 164/90 95 04/25/16 12:01 97.5 85 18 141/78 98 I/O 04/25/16 04/25/16 04/25/16 04/26/16 04/26/16 04/26/16 07:00 15:00 23:00 07:00 15:00 23:00 Intake Total 240 ml 800 ml 100 ml Output Total 350 ml 450 ml Balance -110 ml 800 ml 100 ml -450 ml Intake Oral 240 ml 800 ml 100 ml Output Urine Total 350 ml 450 ml # Voids 3 1 2 Result Diagram: 04/24/16 1837 04/25/16 0422 Objective Remarks GENERAL: This is a well-nourished, well-developed patient, in no apparent distress. SKIN: No rashes, warm and dry HEAD: Atraumatic. Normocephalic. EYES: Pupils equal round and reactive. Extraocular motions intact. No scleral icterus. ENT: Nose without bleeding, or drainage, Airway patent. NECK: Trachea midline. Supple CARDIOVASCULAR: Regular rate and rhythm without murmurs, gallops, or rubs. RESPIRATORY: Fair air entry bilaterally. No wheezes, rales, or rhonchi. GASTROINTESTINAL: Abdomen soft, non-tender, nondistended. Positive bowel sounds MUSCULOSKELETAL: +2 pitting edema. Bilateral lower extremity Pedal pulses appreciated NEUROLOGICAL: Awake and alert. Moves all extremity. Normal speech.no focal neurological deficit : Scrotum swelling, nontender A/P Problem List: (1) Acute exacerbation of CHF (congestive heart failure) ICD Code: I50.9 Status: Acute (2) Testicle swelling ICD Code: N50.89 Status: Acute (3) Bilateral lower extremity edema ICD Code: R60.0 Status: Acute Assessment and Plan 66-year-old man who is a poor historian with a history of CHF, hypertension, COPD presented with: CHF exacerbation with anasarca Images reviewed: Chest x-ray shows moderate pleural effusion on the left with minimal failure -Lasix 40 mg IV given in the ED, then 40 mg IV ordered BID -Fluid restriction -2-D echo showed ejection fraction 30-35% -Restart home medications Coreg -Monitor BMP and BNP daily, with electrolyte New-onset diabetes mellitus -Patient had blood glucose reading of 400 -We'll start Accu-Chek with insulin sliding scale, diabetic diet, diabetic education, check A1c, will start basal insulin accordingly Scrotum swelling Images reviewed: Scrotal ultrasound shows No evidence of acute torsion. Diffusely heterogeneous testicular echotexture, particularly on the right without discrete mass. Due to chronicity and not improving on outpatient diuresis -appreciate urology consultations, recommended follow-up in 6 weeks Lower extremity edema, likely due to CHF Labs reviewed BNP 1675 -Continue diuretics, daily monitor BMP and BNP DVT prophylaxis: Heparin Consult placed to case management for assistance in placement. Windy Abreu MD Apr 26, 2016 11:17
[2016-04-26 12:50] LABS: BICARBONATE 27.8 MEQ/L (21.0-32.0); POTASSIUM 4.8 MEQ/L (3.5-5.1)
[2016-04-26] MEDS ORDERED: DEXTROSE 50% IN WATER 50 ML VIAL(D50) IV PUSH PRN (13:45)
[2016-04-26] MEDS ORDERED: GLUCAGON 1 MG/ML VIAL OTHER PRN (13:45)
[2016-04-26] MEDS: INSULIN ASPART SUPPLEMENTAL SCALE SQ SCH ×2 (14:20→17:02)
[2016-04-26 14:39] LABS: BICARBONATE 29.9 MEQ/L (21.0-32.0); POTASSIUM 4.5 MEQ/L (3.5-5.1)
--- NOTE | 2016-04-26 14:54 | PD.CONS ---
Provisional Diagnosis Admission Date Apr 24, 2016 at 18:33 [place] I. Adjustment disorder with disturbance of conduct History of Present Illness Service Psychiatry Consult Requested By Primary Care Physician No Primary Care Physician HPI The patient is a 66 years old man, self reported homeless, has been living in a motel for the last 2 months, he is originally from [place], single, unemployed, without any previous psychiatric history, no previous psychiatric hospitalizations, no previous suicidal attempts, medical history of CHF, he is legally blind, hard of hearing has to use an amplifier, under observation in the hospital due to decompensation of CHF, consulted to psychiatry due to aggressive behavior and agitation. On psychiatric evaluation patient was found irritable, very loud, kind of disorganized, but he was able to be redirected. Once his patient has his amplifier on communication became effective, he was redirectable. Patient explains that he is the happiest person in the world, he denies depression, denies anxiety, denies perceptual disturbances, denies suicidal or homicidal ideation, but he doesn't like to be repeated over and over the same information. Patient says that he has never seen a psychiatrist before, and he did not come to the hospital or for mental health, but to 3 his heart. He says that the reason he has been mad with the staff is because people, touching without asking his permission, he says that he is blind, but he does not like to be invaded in his personal space. Today many people have have come to getting information, "some of this people talk really fast and a half patience for a blind hard of hearing person and is the reason he become upset". During this evaluation the patient does not present any disorganized behavior or speech, paranoia, delusions, flight of ideas, aggressive behavior or agitation. At times during the evaluation patient is become irritable and intrusive, but he can be redirected easily. The patient denies the use of alcohol and illicit drugs. Patient is fully oriented 3, he is coherent, relevant, logical, no gross cognitive impairment is observed. Review of Systems Constitutional: COMPLAINS OF: Weight loss Endocrine: DENIES: Heat/cold intolerance, Polydipsia, Polyuria, Polyphagia Respiratory: DENIES: Apneas, Cough, Snoring, Wheezing, Hemoptysis, Sputum production, Shortness of breath Cardiovascular: COMPLAINS OF: Palpitations, Orthopnea, Claudication Gastrointestinal: DENIES: Abdominal pain, Black stools, Bloody stools, Constipation, Diarrhea, Nausea, Vomiting, Difficulty Swallowing, Anorexia Genitourinary: COMPLAINS OF: Urinary incontinence, Testicular Swelling, DENIES : Sexual dysfunction, Urinary frequency, Urgency, Hematuria, Dysuria, Nocturia, Penile Discharge, Testicular Pain Musculoskeletal: DENIES: Joint pain, Muscle aches, Stiffness, Joint Swelling, Back pain, Neck pain Integumentary: DENIES: Abnormal pigmentation, Nail changes, Pruritus, Rash Hematologic/lymphatic: DENIES: Bruising, Lymphadenopathy Immunologic/allergic: DENIES: Eczema, Urticaria Neurologic: DENIES: Abnormal gait, Headache, Localized weakness, Paresthesias, Seizures, Speech Problems, Tremor, Poor Balance Psychiatric: DENIES: Anxiety, Confusion, Mood changes, Depression, Hallucinations, Agitation, Suicidal Ideation, Homicidal Ideation, Delusions Other Eyes, blindness due to diabetic retinopathy. Past Family Social History Coded Allergies: UNOBTAINABLE (Unverified , 04/24/16) Reported Medications Acetaminophen (Mapap)325 Mg Hco499 Mg PO Q6HR PRN (PAIN) Ref 0 04/24/16 Furosemide (Lasix)40 Mg Tab40 Mg PO DAILY #30 TAB Ref 0 04/24/16 Lisinopril 5 Mg Tab5 Mg PO DAILY #30 TAB Ref 0 04/24/[address] (Aspirin EC)81 Mg Tabdr81 Mg PO DAILY Ref 0 04/24/16 Carvedilol (Coreg)3.125 Mg Tab3.125 Mg PO BID #60 TAB Ref 0 04/24/16 Current Medications Medications (Trade) Dose Ordered Sig/Willie Route Start Time Stop Time Status Last Admin (NS Flush) 2 ml UNSCH PRN IVF 04/24/16 18:45 (NS Flush) 2 ml BID IVF 04/24/16 21:00 04/26/16 09:26 (Lasix Inj) 40 mg BID@,18 IVP 04/25/16 09:00 04/26/16 09:26 (Heparin Inj) 5,000 units Q8H SQ 04/24/16 21:00 04/26/16 14:21 (Coreg) 3.125 mg BID PO 04/24/16 22:00 04/26/16 09:25 (Ecotrin Ec) 81 mg DAILY PO 04/26/16 09:00 04/26/16 09:25 (D50w (Vial) Inj) 25 ml UNSCH PRN IV PUSH 04/26/16 13:45 (Glucagon Inj) 1 mg UNSCH PRN OTHER 04/26/16 13:45 Family History He denies Social History Patient was born and raised in [place], he came to [place] in January 2016 , he has been living in [facility], he says he has no family, Physical Exam Vital Signs Vital Signs Date Time Temp Pulse Resp B/P Pulse Ox O2 Delivery O2 Flow Rate FiO2 04/26/16 12:49 99 04/26/16 09:15 97.7 76 18 138/75 04/25/16 10:28 21 04/24/16 21:49 Room Air I/O 04/25/16 04/25/16 04/26/16 08:00 16:00 00:00 Intake Total 240 ml 900 ml Output Total 350 ml Balance -110 ml 900 ml Mental Status Examination Appearance Skinny white male, age appearing, good hygiene, [facility], cooperative, but irritable Speech: Unremarkable Orientation: x3 Memory: Unremarkable Thought Process: Logical Thought Content: Unremarkable Hallucination Type: None Suicidal Ideation: No Previous Suicide Attempts: No Homicidal Ideation: No Previous Homicide Attempts: No Insight: Fair Judgement: Impulsive Affect: Irritable Mood: Angry Motor Activity: Normal gait Assessment & Plan Problem List: (1) Adjustment disorder with disturbance of conduct Assessment & Plan: On psychiatric evaluation patient is quite irritable, little bit agitated and loud, but redirectable. Once patient has on his hearing aid, and was redirected, he became, cooperative. Patient denies depressive symptoms, anxiety, perceptual disturbances and and simón. No paranoia, delusions, aggressive behavior, agitation, flight of ideas, could be elicited during this evaluation. Patient does not need any immediate psychiatric intervention at this moment. Medication for anxiety and to prevent agitation was offered to the patient, but he declined. My impression is that due to patient's perceptual and sensory limitation can become easily overwhelmed and frustrated and this is the reason he becomes irritable and verbally hostile. Patient doesn't meet criteria for psychiatric admission. If patient becomes aggressive, or disorganized needing immediate psychiatric intervention, please call psychiatrist on-call during the weekend, Dr. Guillen, \\ [phone]. Consul appreciated. ICD Code: F43.24 Assessment & Plan Estimated LOS: days Cesar Wade MD Apr 26, 2016 14:54
[2016-04-26 17:17] LABS: HEMOGLOBIN A1a 1.9 %; HEMOGLOBIN A1b 1.3 %; HEMOGLOBIN Ao 71.8 %; HEMOGLOBIN F 2.2 %; HEMOGLOBIN LA1C 4.5 %; HEMOGLOBIN P3 8.9 %
[2016-04-26] MEDS ORDERED: ACETAMINOPHEN/HYDROcodone 325 MG/5 MG TAB PO PRN (17:45)
[2016-04-27] VITALS (7 sets, daily range): BP systolic 108–141; BP diastolic 53–79; PULSE 72–78; RESP 18–21; TEMP 97.7–98.2; O2SAT 96–98
[2016-04-27] MEDS: HEPARIN SODIUM - SQ 10,000 UNITS/ML VIAL SQ SCH ×3 (06:45→21:50)
[2016-04-27] MEDS: INSULIN ASPART SUPPLEMENTAL SCALE SQ SCH ×4 (06:46→21:51)
[2016-04-27] MEDS: CARVEDILOL 3.125 MG TAB PO SCH ×2 (08:58→21:49)
[2016-04-27] MEDS: ASPIRIN EC 81 MG TABEC PO SCH (08:58)
[2016-04-27] MEDS: FUROSEMIDE 40 MG/4 ML VIAL IVP SCH ×2 (08:59→17:43)
[2016-04-27] MEDS: SODIUM CHLORIDE 0.9% FLUSH 5 ML FLUSH IVF SCH ×2 (09:11→21:49)
--- NOTE | 2016-04-27 13:00 | HHI.PR ---
Subjective Remarks Patient has usual sitting on a chair having his hearing aid which looks like headphones, talking nonstop to unknown person When I start asking him questions he become agitated and his answers are unpleasant But I could understand that he feels better and his swelling is better Objective Vitals Vital Signs Date Time Temp Pulse Resp B/P Pulse Ox O2 Delivery O2 Flow Rate FiO2 04/27/16 10:56 97.7 72 18 127/79 96 04/27/16 07:41 97.9 74 18 112/71 96 04/27/16 04:37 98.0 77 18 108/53 98 04/27/16 04:35 73 04/27/16 00:26 97.8 78 18 141/72 98 04/26/16 19:30 98.7 74 18 118/58 97 04/26/16 15:29 97.7 75 18 133/72 99 I/O 04/26/16 04/26/16 04/26/16 04/27/16 04/27/16 04/27/16 07:00 15:00 23:00 07:00 15:00 23:00 Intake Total 960 ml 480 ml Output Total 450 ml 200 ml Balance -450 ml 760 ml 480 ml Intake Oral 960 ml 480 ml Output Urine Total 450 ml 200 ml # Voids 2 3 2 Result Diagram: 04/24/16 1837 04/26/16 1341 Objective Remarks GENERAL: This is a well-nourished, well-developed patient, in no apparent distress. SKIN: No rashes, warm and dry HEAD: Atraumatic. Normocephalic. EYES: Pupils equal round and reactive. Extraocular motions intact. No scleral icterus. ENT: Nose without bleeding, or drainage, Airway patent. NECK: Trachea midline. Supple CARDIOVASCULAR: Regular rate and rhythm without murmurs, gallops, or rubs. RESPIRATORY: Fair air entry bilaterally. No wheezes, rales, or rhonchi. GASTROINTESTINAL: Abdomen soft, non-tender, nondistended. Positive bowel sounds MUSCULOSKELETAL: +2 pitting edema. Bilateral lower extremity Pedal pulses appreciated NEUROLOGICAL: Awake and alert. Moves all extremity. Normal speech.no focal neurological deficit : Scrotum swelling, nontender A/P Problem List: (1) Acute exacerbation of CHF (congestive heart failure) ICD Code: I50.9 Status: Acute (2) Testicle swelling ICD Code: N50.89 Status: Acute (3) Bilateral lower extremity edema ICD Code: R60.0 Status: Acute Assessment and Plan 66-year-old man who is a poor historian with a history of CHF, hypertension, COPD presented with: CHF exacerbation with anasarca Images reviewed: Chest x-ray shows moderate pleural effusion on the left with minimal failure -In tinea with Lasix 40 mg BID -Fluid restriction 1500 , -2-D echo showed ejection fraction 30-35% -Restart home medications Coreg -Monitor BMP and BNP daily, with electrolyte, monitor I&O New-onset uncontrolled diabetes mellitus -hb A1c 11.1 -Start Levemir insulin 7 units twice a day -Patient had blood glucose reading of 400 -Start Accu-Chek with insulin sliding scale, diabetic diet, diabetic education , Scrotum swelling Images reviewed: Scrotal ultrasound shows No evidence of acute torsion. Diffusely heterogeneous testicular echotexture, particularly on the right without discrete mass. Due to chronicity and not improving on outpatient diuresis -appreciate urology consultations, recommended follow-up in 6 weeks Lower extremity edema, likely due to CHF Labs reviewed BNP 1675 -Continue diuretics, daily monitor BMP and BNP DVT prophylaxis: Heparin Consult placed to case management for assistance in placement. Windy Abreu MD Apr 27, 2016 13:00
[2016-04-27 14:34] LABS: BICARBONATE 29.7 MEQ/L (21.0-32.0); POTASSIUM 4.3 MEQ/L (3.5-5.1)
[2016-04-27] MEDS: INSULIN DETEMIR 100 UNITS/ML VIAL SQ SCH (21:50)
[2016-04-28] VITALS (10 sets, daily range): BP systolic 107–139; BP diastolic 59–77; PULSE 65–78; RESP 18–20; TEMP 97.5–98; O2SAT 93–99
[2016-04-28] MEDS: HEPARIN SODIUM - SQ 10,000 UNITS/ML VIAL SQ SCH ×3 (05:10→21:38)
[2016-04-28] MEDS: INSULIN ASPART SUPPLEMENTAL SCALE SQ SCH ×4 (05:14→21:47)
[2016-04-28 08:52] LABS: AUTOMATED NEUTROPHIL # 4.1 TH/MM3 (1.8-7.7); BASOPHIL # 0.1 TH/MM3 (0-0.2); BASOPHIL % 1.7 % (0.0-2.0); EOSINOPHIL # 0.3 TH/MM3 (0-0.4); EOSINOPHIL % 4.8 % (0.0-4.0); HEMATOCRIT 30.2 % (39.0-51.0); HEMO FLAGS DIFF FINAL; LYMPH % 20.8 % (9.0-44.0); LYMPHOCYTE # 1.3 TH/MM3 (1.0-4.8); MEAN CORPUSCULAR HEMOGLOBIN 25.2 PG (27.0-34.0); MEAN CORPUSCULAR HGB CONC 33.1 % (32.0-36.0); MONO % 9.2 % (0.0-8.0); NEUT % 63.5 % (16.0-70.0); PLATELET COUNT 310 TH/MM3 (150-450); RED BLOOD COUNT 3.97 MIL/MM3 (4.50-5.90); RED CELL DISTRIBUTION WIDTH 17.5 % (11.6-17.2); WHITE BLOOD COUNT 6.4 TH/MM3 (4.0-11.0)
[2016-04-28 09:16] LABS: BICARBONATE 29.6 MEQ/L (21.0-32.0); MAGNESIUM 1.9 MG/DL (1.5-2.5); POTASSIUM 4.3 MEQ/L (3.5-5.1)
[2016-04-28] MEDS: CARVEDILOL 3.125 MG TAB PO SCH ×2 (10:49→21:37)
[2016-04-28] MEDS: FUROSEMIDE 40 MG/4 ML VIAL IVP SCH ×2 (10:49→18:21)
[2016-04-28] MEDS: INSULIN DETEMIR 100 UNITS/ML VIAL SQ SCH ×2 (10:49→21:38)
[2016-04-28] MEDS: ASPIRIN EC 81 MG TABEC PO SCH (10:49)
[2016-04-28] MEDS: NICOTINE 14 MG/24 HR PATCH TD SCH (10:49)
[2016-04-28] MEDS: SODIUM CHLORIDE 0.9% FLUSH 5 ML FLUSH IVF SCH ×2 (10:50→21:37)
--- NOTE | 2016-04-28 10:59 | HHI.PR ---
Subjective Remarks Follow up on congestive heart failure Patient today seems to be less unpleasant from other days I could have some productive discussion with him, I let him to this time to wear his ear buds to start conversation He's telling me his scrotal swelling improved which indeed was much better than when he first came Leg swelling still there but coming down, he stated he feels that better than before Psychiatrist asked the patient no need for psychiatry intervention, however must occupation is having agitation and frustration due to perceptual and sensory limitation D/W rn case manager hospice, patient doesn't have a place he lives in a motel, he is from [place], she talk to his family over there, to have somebody to come over to take care of the patient, he still under observation status, rn case manager hospice will advise me about further addressing of his status. Order PT OT, walk test, we'll continue diuresing, hopefully able to discharge in 1 or 2 days if able to arrange safe discharge for him Objective Vitals Vital Signs Date Time Temp Pulse Resp B/P Pulse Ox O2 Delivery O2 Flow Rate FiO2 04/28/16 07:38 97.8 68 18 107/67 96 04/28/16 04:41 98.0 77 18 121/72 97 04/28/16 02:15 65 04/27/16 20:30 98.2 78 21 127/67 98 04/27/16 15:28 97.8 74 18 126/74 96 04/27/16 10:56 97.7 72 18 127/79 96 Result Diagram: 04/28/16 0739 04/28/16 0739 Imaging Last Impressions Chest X-Ray 04/24/16 1423 Signed Impressions: Service Date/Time: Sunday, April 24, 2016 14:33 - CONCLUSION: Moderate pleural effusion on the left with minimal failure.. Erickson Steiner MD FACR Scrotum Ultrasound 04/24/16 0000 Signed Impressions: Service Date/Time: Sunday, April 24, 2016 15:57 - CONCLUSION: No evidence of acute torsion. Diffusely heterogeneous testicular echotexture, particularly on the right without discrete mass. Differential considerations would include chronic benign appearance related to prior insult, orchitis, diffuse neoplastic infiltration. Correlation and followup recommended as indicated. José Manuel Smith MD Objective Remarks GENERAL: This is a well-nourished, well-developed patient, in no apparent distress. SKIN: No rashes, warm and dry HEAD: Atraumatic. Normocephalic. EYES: Pupils equal round and reactive. Extraocular motions intact. No scleral icterus. ENT: Nose without bleeding, or drainage, Airway patent. NECK: Trachea midline. Supple CARDIOVASCULAR: Regular rate and rhythm without murmurs, gallops, or rubs. RESPIRATORY: Fair air entry bilaterally. No wheezes, rales, or rhonchi. GASTROINTESTINAL: Abdomen soft, non-tender, nondistended. Positive bowel sounds MUSCULOSKELETAL: +2 pitting edema. Bilateral lower extremity Pedal pulses appreciated NEUROLOGICAL: Awake and alert. Moves all extremity. Normal speech.no focal neurological deficit : Scrotum swelling much improved, nontender A/P Problem List: (1) Acute exacerbation of CHF (congestive heart failure) ICD Code: I50.9 Status: Acute (2) Testicle swelling ICD Code: N50.89 Status: Acute (3) Bilateral lower extremity edema ICD Code: R60.0 Status: Acute Assessment and Plan 04/28/16: BMP trending down 1095 today, Psychiatrist asked the patient no need for psychiatry intervention, however must occupation is having agitation and frustration due to perceptual and sensory limitation D/W rn case manager hospice, patient doesn't have a place he lives in a motel, he is from [place], she talk to his family over there, to have somebody to come over to take care of the patient, he still under observation status, rn case manager hospice will advise me about further addressing of his status. Order PT OT, walk test, we'll continue diuresing, hopefully able to discharge in 1 or 2 days if able to arrange safe discharge for him A/P 66-year-old man who is a poor historian with a history of CHF, hypertension, COPD presented with: CHF exacerbation with anasarca Images reviewed: Chest x-ray shows moderate pleural effusion on the left with minimal failure -In tinea with Lasix 40 mg BID -Fluid restriction 1500 , -2-D echo showed ejection fraction 30-35% -Restart home medications Coreg -Monitor BMP and BNP daily, with electrolyte, monitor I&O uncontrolled diabetes mellitus -hb A1c 11.1 -Start Levemir insulin 7 units twice a day, will adjust according to his need -Patient had blood glucose reading of 400 -Start Accu-Chek with insulin sliding scale, diabetic diet, diabetic education , Scrotum swelling: Much improved Images reviewed: Scrotal ultrasound shows No evidence of acute torsion. Diffusely heterogeneous testicular echotexture, particularly on the right without discrete mass. Due to chronicity and not improving on outpatient diuresis -appreciate urology consultations, recommended follow-up in 6 weeks Lower extremity edema, likely due to CHF Labs reviewed BNP 1675 -Continue diuretics, daily monitor BMP and BNP DVT prophylaxis: Heparin Consult placed to case management for assistance in placement. Windy Abreu MD Apr 28, 2016 10:59
[2016-04-29] VITALS (9 sets, daily range): BP systolic 107–139; BP diastolic 59–78; PULSE 71–80; RESP 18–20; TEMP 97.6–98.9; O2SAT 92–100
[2016-04-29] MEDS: INSULIN ASPART SUPPLEMENTAL SCALE SQ SCH ×4 (06:41→22:05)
[2016-04-29] MEDS: HEPARIN SODIUM - SQ 10,000 UNITS/ML VIAL SQ SCH ×3 (06:46→22:04)
[2016-04-29] MEDS: SODIUM CHLORIDE 0.9% FLUSH 5 ML FLUSH IVF SCH ×2 (09:00→22:04)
[2016-04-29] MEDS: REMOVE OLD PATCH TD SCH (09:00)
[2016-04-29] MEDS ORDERED: LEVEMIR SQ ×2 (09:41)
[2016-04-29] MEDS ORDERED: FURO1TAB60 PO (09:41)
--- NOTE | 2016-04-29 09:43 | HHI.FF ---
Face to Face Verification Diagnosis: (1) Bilateral lower extremity edema (2) Pleural effusion (3) Acute exacerbation of CHF (congestive heart failure) (4) Scrotal swelling Physical Therapy Order: Evaluate and Treat Occupational Therapy Order: Evaluate and Treat Home Health Nursing Order: Medical education Diabetic education CHF education Nursing assessment with vital signs I have seen patient Sascha Morejon on 04/29/16. My clinical findings support the need for the requested home health care services because: Ltd mobility - disease progression Med compliance is questionable Limited ability to care for self Impaired cognition/judgement I certify that my clinical findings support that this patient is homebound because: Unsafe to leave home unassisted Need for psychosocial assistance Poor cardiac reserve Windy Abreu MD Apr 29, 2016 09:43
[2016-04-29] MEDS: CARVEDILOL 3.125 MG TAB PO SCH ×2 (10:05→22:04)
[2016-04-29] MEDS: ASPIRIN EC 81 MG TABEC PO SCH (10:05)
[2016-04-29] MEDS: NICOTINE 14 MG/24 HR PATCH TD SCH (10:06)
[2016-04-29] MEDS: FUROSEMIDE 40 MG/4 ML VIAL IVP SCH ×2 (10:06→18:31)
--- NOTE | 2016-04-29 10:53 | HHI.PR ---
Subjective Remarks Patient is working with a physical therapist Looks like his scrotal edema is worsening back again today Not sure how compliant he is with fluid restriction However no chest pain or short of breath, Organ continue with PT and check his walk O2 test Patient lives in the room in a motel by himself, discussed with the rifle case repairer regarding checking with the family who lives in a different state and they will try to calm to take care of the patient, he doesn't seem to be safe discharge on his own Objective Vitals Vital Signs Date Time Temp Pulse Resp B/P Pulse Ox O2 Delivery O2 Flow Rate FiO2 04/29/16 08:15 92 21 04/29/16 07:38 98.3 75 18 138/78 04/29/16 04:33 97.6 72 20 117/70 94 04/28/16 23:56 97.7 74 20 115/59 96 04/28/16 20:04 78 04/28/16 20:00 93 04/28/16 19:31 97.6 77 20 137/66 93 04/28/16 15:16 97.5 72 18 130/75 98 04/28/16 12:02 97.7 71 18 139/77 99 04/28/16 10:56 96 21 I/O 04/28/16 04/28/16 04/28/16 04/29/16 04/29/16 04/29/16 07:00 15:00 23:00 07:00 15:00 23:00 Intake Total 148 ml 320 ml Balance 148 ml 320 ml Intake Oral 148 ml 320 ml # Voids 2 Result Diagram: 04/28/16 0739 04/28/16 0739 Objective Remarks GENERAL: This is a well-nourished, well-developed patient, in no apparent distress. SKIN: No rashes, warm and dry HEAD: Atraumatic. Normocephalic. EYES: Pupils equal round and reactive. Extraocular motions intact. No scleral icterus. ENT: Nose without bleeding, or drainage, Airway patent. NECK: Trachea midline. Supple CARDIOVASCULAR: Regular rate and rhythm without murmurs, gallops, or rubs. RESPIRATORY: Fair air entry bilaterally. No wheezes, rales, or rhonchi. GASTROINTESTINAL: Abdomen soft, non-tender, nondistended. Positive bowel sounds MUSCULOSKELETAL: +2 pitting edema. Bilateral lower extremity Pedal pulses appreciated NEUROLOGICAL: Awake and alert. Moves all extremity. Normal speech.no focal neurological deficit : Scrotum swelling much improved, nontender A/P Problem List: (1) Acute exacerbation of CHF (congestive heart failure) ICD Code: I50.9 Status: Acute (2) Testicle swelling ICD Code: N50.89 Status: Acute (3) Bilateral lower extremity edema ICD Code: R60.0 Status: Acute Assessment and Plan 04/28/16: BMP trending down 1095 today, Psychiatrist asked the patient no need for psychiatry intervention, however must occupation is having agitation and frustration due to perceptual and sensory limitation D/W rifle case repairer, patient doesn't have a place he lives in a motel, he is from [place], she talk to his family over there, to have somebody to come over to take care of the patient, he still under observation status, rifle case repairer will advise me about further addressing of his status. Order PT OT, walk test, we'll continue diuresing, hopefully able to discharge in 1 or 2 days if able to arrange safe discharge for him 04/29/16: Continue diuretic management, monitor BMP and BNP, scrotal swelling worsened today Placement issue patient lives alone in am room in a motel, he has a perceptual and sensible limitation, it doesn't seem to be safe to be discharged on his own, discussed with rifle case repairer extensively, she is working on contacting his family A/P 66-year-old man who is a poor historian with a history of CHF, hypertension, COPD presented with: CHF exacerbation with anasarca Images reviewed: Chest x-ray shows moderate pleural effusion on the left with minimal failure -In tinea with Lasix 40 mg BID -Fluid restriction 1500 , -2-D echo showed ejection fraction 30-35% -Restart home medications Coreg -Monitor BMP and BNP daily, with electrolyte, monitor I&O uncontrolled diabetes mellitus -hb A1c 11.1 -Start Levemir insulin 7 units twice a day, will adjust according to his need -Patient had blood glucose reading of 400 -Start Accu-Chek with insulin sliding scale, diabetic diet, diabetic education , Scrotum swelling: Much improved Images reviewed: Scrotal ultrasound shows No evidence of acute torsion. Diffusely heterogeneous testicular echotexture, particularly on the right without discrete mass. Due to chronicity and not improving on outpatient diuresis -appreciate urology consultations, recommended follow-up in 6 weeks Lower extremity edema, likely due to CHF Labs reviewed BNP 1675 -Continue diuretics, daily monitor BMP and BNP DVT prophylaxis: Heparin Consult placed to case management for assistance in placement. Windy Abreu MD Apr 29, 2016 10:53
[2016-04-29 12:17] LABS: BICARBONATE 30.6 MEQ/L (21.0-32.0); POTASSIUM 4.5 MEQ/L (3.5-5.1)
[2016-04-29] MEDS: INSULIN DETEMIR 100 UNITS/ML VIAL SQ SCH (22:05)
[2016-04-30] VITALS (7 sets, daily range): BP systolic 106–131; BP diastolic 57–78; PULSE 72–77; RESP 16–20; TEMP 97.5–98.6; O2SAT 93–98
[2016-04-30] MEDS: HEPARIN SODIUM - SQ 10,000 UNITS/ML VIAL SQ SCH ×3 (06:17→22:35)
[2016-04-30] MEDS: INSULIN ASPART SUPPLEMENTAL SCALE SQ SCH ×4 (06:19→21:00)
[2016-04-30] MEDS ORDERED: INSULIN DETEMIR 100 UNITS/ML VIAL SQ SCH (08:00)
[2016-04-30] MEDS: FUROSEMIDE 40 MG/4 ML VIAL IVP SCH ×2 (08:49→17:55)
[2016-04-30] MEDS: SODIUM CHLORIDE 0.9% FLUSH 5 ML FLUSH IVF SCH ×2 (08:49→22:34)
[2016-04-30] MEDS: REMOVE OLD PATCH TD SCH (08:50)
[2016-04-30] MEDS: ASPIRIN EC 81 MG TABEC PO SCH (08:50)
[2016-04-30] MEDS: CARVEDILOL 3.125 MG TAB PO SCH ×2 (08:50→22:35)
[2016-04-30] MEDS: NICOTINE 14 MG/24 HR PATCH TD SCH (08:50)
[2016-04-30] MEDS ORDERED: NOVOLOGP2 SQ (11:25)
--- NOTE | 2016-04-30 11:33 | HHI.PR ---
Subjective Remarks Patient sleeping in bed comfortably, looks like his edema is stable, he needs to be on fluid restriction and continue on diuretic, and follow up with primary care within 1 week PT did not recommend need for physical therapy, patient probably stable to be discharged with home health care to take care of his social issue and educate him about CHF with his very low cardiac capacity Objective Vitals Vital Signs Date Time Temp Pulse Resp B/P Pulse Ox O2 Delivery O2 Flow Rate FiO2 04/30/16 07:56 97.8 77 18 131/78 96 04/30/16 04:31 98.6 72 20 106/58 98 04/29/16 23:08 98.8 73 20 107/78 94 04/29/16 21:15 71 04/29/16 19:49 98.9 80 20 110/59 99 04/29/16 15:59 97.7 75 18 139/75 98 04/29/16 11:52 97.9 74 18 125/74 100 I/O 04/29/16 04/29/16 04/29/16 04/30/16 04/30/16 04/30/16 07:00 15:00 23:00 07:00 15:00 23:00 Intake Total 320 ml 800 ml Output Total 950 ml 400 ml Balance 320 ml -150 ml -400 ml Intake Oral 320 ml 800 ml Output Urine Total 950 ml 400 ml # Voids 2 # Bowel Movements 0 Result Diagram: 04/28/16 0739 04/29/16 1120 Objective Remarks GENERAL: This is a well-nourished, well-developed patient, in no apparent distress. SKIN: No rashes, warm and dry HEAD: Atraumatic. Normocephalic. EYES: Pupils equal round and reactive. Extraocular motions intact. No scleral icterus. ENT: Nose without bleeding, or drainage, Airway patent. NECK: Trachea midline. Supple CARDIOVASCULAR: Regular rate and rhythm without murmurs, gallops, or rubs. RESPIRATORY: Fair air entry bilaterally. No wheezes, rales, or rhonchi. GASTROINTESTINAL: Abdomen soft, non-tender, nondistended. Positive bowel sounds MUSCULOSKELETAL: +1 pitting edema. Bilateral lower extremity Pedal pulses appreciated NEUROLOGICAL: Awake and alert. Moves all extremity. Normal speech.no focal neurological deficit : Scrotum swelling much improved, nontender A/P Problem List: (1) Acute exacerbation of CHF (congestive heart failure) ICD Code: I50.9 Status: Acute (2) Testicle swelling ICD Code: N50.89 Status: Acute (3) Bilateral lower extremity edema ICD Code: R60.0 Status: Acute Assessment and Plan 04/28/16: BMP trending down 1095 today, Psychiatrist asked the patient no need for psychiatry intervention, however must occupation is having agitation and frustration due to perceptual and sensory limitation D/W transplant case manager, patient doesn't have a place he lives in a motel, he is from [place], she talk to his family over there, to have somebody to come over to take care of the patient, he still under observation status, transplant case manager will advise me about further addressing of his status. Order PT OT, walk test, we'll continue diuresing, hopefully able to discharge in 1 or 2 days if able to arrange safe discharge for him 04/29/16: Continue diuretic management, monitor BMP and BNP, scrotal swelling worsened today Placement issue patient lives alone in am room in a motel, he has a perceptual and sensible limitation, it doesn't seem to be safe to be discharged on his own, discussed with transplant case manager extensively, she is working on contacting his family 04/30/16: Patient medically seems to be stable to be discharged on fluid restriction and Lasix twice a day, he may benefit from low dose spironolactone however due to potassium being about 4.5 we'll hold on that and will leave it for primary care to initiated if potassium level have room for it, BMP to be checked in 1 week and patient to follow up with his PCP in one week A/P 66-year-old man who is a poor historian with a history of CHF, hypertension, COPD presented with: CHF exacerbation with anasarca Images reviewed: Chest x-ray shows moderate pleural effusion on the left with minimal failure -In tinea with Lasix 40 mg BID -Fluid restriction 1500 , -2-D echo showed ejection fraction 30-35% -Restart home medications Coreg -Monitor BMP and BNP daily, with electrolyte, monitor I&O I discussed with the patient in length about his low ejection fraction and indication of ICD, he definitely does not want to pursue this at this point, he wants to be discharged and 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 Diffusely heterogeneous testicular echotexture, particularly on the right without discrete mass. Due to chronicity and not improving on outpatient diuresis -appreciate urology consultations, recommended follow-up in 6 weeks Lower extremity edema, likely due to CHF Labs reviewed BNP 1675 -Continue diuretics, daily monitor BMP and BNP DVT prophylaxis: Heparin Consult placed to case management for assistance in placement. Windy Abreu MD Apr 30, 2016 11:33
--- NOTE | 2016-04-30 11:35 | HHI.DS ---
Discharge Summary Admission Date Apr 24, 2016 at 18:33 Discharge Date: May 01, 2016 Admitting Diagnosis CHF EXACERBATION (1) Acute exacerbation of CHF (congestive heart failure) ICD Code: I50.9 (2) Testicle swelling ICD Code: N50.89 (3) Bilateral lower extremity edema ICD Code: R60.0 Procedures None Brief History - From Admission 66 y/o male is a poor historian and was unable to provide his history, he kept saying just call my sister. Spoke with the sister over the phone and she states he recently had a valve replacement and cannot And came to [place] in late January for the winter. While in [place] he had some complications and was taken to [facility] in [place], was found to be in CHF and COPD exacerbation. He was discharged from there and sent [facility] rehabilitation and then was discharged home. Up until last week he was on hospice with [facility] apparently for end-stage COPD, patient's wishes were not to be in a nursing facility, and family was trying to get him to move to [place]. Hospice was stopped one week ago so patient could move to [place], according to the patient's sister then lost contact with him for the last few days and he apparently never got on the bus to move. Patient is very hard of hearing and uses a amplifier in headphones to communicate, at this time he was unable to answer any questions and was not cooperative. Patient's sister stated she would like to speak with somebody regarding options placement once patient is discharged. According to the ER reports patient came in complaining of swollen lower extremities and bilateral testicles for the last 4 days, currently on Lasix at home with no improvement. CBC/BMP: 04/28/16 0739 04/29/16 1120 Significant Findings Laboratory Tests Test 04/27/16 04/28/16 04/29/16 14:05 07:39 11:20 Sodium Level 130 MEQ/L 133 MEQ/L 129 MEQ/L (136-145) (136-145) (136-145) Chloride Level 91 MEQ/L 95 MEQ/L 93 MEQ/L (98-107) (98-107) (98-107) Blood Urea Nitrogen 41 MG/DL (7-18) 35 MG/DL (7-18) 35 MG/DL (7-18) Creatinine 1.46 MG/DL (0.60-1.30) Estimat Glomerular Filtration 48 ML/MIN (>89) 60 ML/MIN (>89) 57 ML/MIN (>89) Rate Random Glucose 326 MG/DL 113 MG/DL 174 MG/DL (74-106) (74-106) (74-106) Red Blood Count 3.97 MIL/MM3 (4.50-5.90) Hemoglobin 10.0 GM/DL (13.0-17.0) Hematocrit 30.2 % (39.0-51.0) Mean Corpuscular Volume 76.0 FL (80.0-100.0) Mean Corpuscular Hemoglobin 25.2 PG (27.0-34.0) Red Cell Distribution Width 17.5 % (11.6-17.2) Monocytes (%) (Auto) 9.2 % (0.0-8.0) Eosinophils (%) (Auto) 4.8 % (0.0-4.0) B-Type Natriuretic Peptide 1095 PG/ML 1000 PG/ML (0-100) (0-100) PE at Discharge GENERAL: This is a well-nourished, well-developed patient, in no apparent distress. SKIN: No rashes, warm and dry HEAD: Atraumatic. Normocephalic. EYES: Pupils equal round and reactive. Extraocular motions intact. No scleral icterus. ENT: Nose without bleeding, or drainage, Airway patent. NECK: Trachea midline. Supple CARDIOVASCULAR: Regular rate and rhythm without murmurs, gallops, or rubs. RESPIRATORY: Fair air entry bilaterally. No wheezes, rales, or rhonchi. GASTROINTESTINAL: Abdomen soft, non-tender, nondistended. Positive bowel sounds MUSCULOSKELETAL: +1 pitting edema. Bilateral lower extremity Pedal pulses appreciated NEUROLOGICAL: Awake and alert. Moves all extremity. Normal speech.no focal neurological deficit : Scrotum swelling much improved, nontender Hospital Course 66-year-old man who is a poor historian with a history of CHF, hypertension, COPD presented with, CHF exacerbation with anasarca Images reviewed: Chest x-ray shows moderate pleural effusion on the left with minimal failure - Lasix 40 mg BID -Fluid restriction 1500 , -2-D echo showed ejection fraction 30-35%, normal mitral valve prosthesis function -Restart home medications Coreg -Monitor BMP and BNP daily, with electrolyte, monitor I&O I discussed with the patient in length about his low ejection fraction and indication of ICD, he definitely does not want to pursue this at this point, he wants to be discharged and 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 Diffusely heterogeneous testicular echotexture, particularly on the right without discrete mass. Due to chronicity and not improving on outpatient diuresis -appreciate urology consultations, recommended follow-up in 6 weeks Lower extremity edema, likely due to CHF Labs reviewed daily including BNP, BMP Continue diuretics, daily monitor BMP and BNP, fluid restriction, ANGELA hose, leg elevation DVT prophylaxis: Heparin Consult placed to case management for assistance in placement. Daily detailed hospital course 04/28/16: BMP trending down 1095 today, Psychiatrist asked the patient no need for psychiatry intervention, however must occupation is having agitation and frustration due to perceptual and sensory limitation D/W case investigator, patient doesn't have a place he lives in a motel, he is from [place], she talk to his family over there, to have somebody to come over to take care of the patient, he still under observation status, case investigator will advise me about further addressing of his status. Order PT OT, walk test, we'll continue diuresing, hopefully able to discharge in 1 or 2 days if able to arrange safe discharge for him 04/29/16: Continue diuretic management, monitor BMP and BNP, scrotal swelling worsened today Placement issue patient lives alone in am room in a motel, he has a perceptual and sensible limitation, it doesn't seem to be safe to be discharged on his own, discussed with case investigator extensively, she is working on contacting his family 04/30/16: Patient medically seems to be stable to be discharged on fluid restriction and Lasix twice a day, he may benefit from low dose spironolactone however due to potassium being about 4.5 we'll hold on that and will leave it for primary care to initiated if potassium level have room for it, BMP to be checked in 1 week and patient to follow up with his PCP in one week [id number] encounter performed with the patient on discharge day, as well as physical exam, summary of hospitalization course and postdischarge plan has been D/W the patient. D/W nurse D/W case investigator. Discharge medications reviewed and printed and signed, post discharge follow up visit with PCP and other specialist as well as Brief hospital course and discharge summary has been placed. Pt Condition on Discharge: Stable Discharge Disposition: Disch w/ Home Health Serv Discharge Time: > 30 minutes Discharge Instructions DIET: Follow Instructions for: Heart Healthy Diet, Diabetic Diet Additional Diet Instructions: Fluid restriction to 1.5 L only a day Fluid Restrictions: 1500 cc/day Activities you can perform: Weight Bearing as Yocasta Follow up Referrals: PCP Follow-up - 1 Week New Orders: BASIC METABOLIC PROF - 1 Week New Medications: Furosemide (Lasix) 40 Mg Tab 40 MG PO BID chf #60 Ref 0 TAB Insulin Aspart Inj (Novolog Inj) 1,000 Unit/10 Ml Vial 2 UNITS SQ TIDAC dm Days 30 INJECTION Insulin Detemir Inj (Levemir Inj) 1,000 unit/ 10 ML Vial 7 UNITS SQ DAILYAC dm Days 30 INJECTION Insulin Detemir Inj (Levemir Inj) 1,000 unit/ 10 ML Vial 5 UNITS SQ HS dm Days 30 INJECTION Continued Medications: Aspirin DR (Aspirin EC) 81 Mg Tabdr 81 MG PO DAILY Ref 0 TAB Carvedilol (Coreg) 3.125 Mg Tab 3.125 MG PO BID #60 Ref 0 TAB Lisinopril (Lisinopril) 5 Mg Tab 5 MG PO DAILY Blood Pressure Management #30 Ref 0 TAB Windy Abreu MD Apr 30, 2016 11:35
[2016-04-30] MEDS: INSULIN ASPART 1,000 UNITS/10 ML VIAL SQ SCH ×2 (13:00→17:55)
[2016-04-30] MEDS: INSULIN DETEMIR 100 UNITS/ML VIAL SQ SCH (22:35)
[2016-05-01 00:17] VITALS: BP 119/83; PULSE 76; RESP 20; TEMP 98.2; O2SAT 95
[2016-05-01] MEDS: HEPARIN SODIUM - SQ 10,000 UNITS/ML VIAL SQ SCH (05:10)
[2016-05-01 05:17] VITALS: BP 135/72; PULSE 74; RESP 20; TEMP 98.2; O2SAT 96
[2016-05-01 05:22] VITALS: O2SAT 94
[2016-05-01 07:45] VITALS: BP 134/74; PULSE 71; RESP 18; TEMP 97.4; O2SAT 97
[2016-05-01] MEDS: INSULIN ASPART SUPPLEMENTAL SCALE SQ SCH (07:49)
[2016-05-01 08:52] VITALS: O2SAT 99
--- NOTE | 2016-05-01 09:16 | HHI.PR ---
Subjective Remarks Patient doing well, swelling is improving, he is supposed to be discharged yesterday, some issue with home O2 walking test Plan: To proceed with discharge today, I discussed with the nurse Objective Vitals Vital Signs Date Time Temp Pulse Resp B/P Pulse Ox O2 Delivery O2 Flow Rate FiO2 05/01/16 08:52 99 05/01/16 07:45 97.4 71 18 134/74 97 05/01/16 05:22 94 21 05/01/16 05:17 98.2 74 20 135/72 96 05/01/16 00:17 98.2 76 20 119/83 95 04/30/16 22:06 77 04/30/16 21:06 97.7 73 20 124/59 93 04/30/16 15:53 97.6 72 18 112/57 97 04/30/16 12:27 97.5 72 16 120/66 96 04/30/16 09:56 75 I/O 04/30/16 04/30/16 04/30/16 05/01/16 05/01/16 05/01/16 07:00 15:00 23:00 07:00 15:00 23:00 Intake Total 600 ml Output Total 400 ml 380 ml Balance -400 ml 600 ml -380 ml Intake Oral 600 ml Output Urine Total 400 ml 380 ml # Voids 4 Result Diagram: 04/28/16 0739 04/29/16 1120 Objective Remarks GENERAL: This is a well-nourished, well-developed patient, in no apparent distress. SKIN: No rashes, warm and dry HEAD: Atraumatic. Normocephalic. EYES: Pupils equal round and reactive. Extraocular motions intact. No scleral icterus. ENT: Nose without bleeding, or drainage, Airway patent. NECK: Trachea midline. Supple CARDIOVASCULAR: Regular rate and rhythm without murmurs, gallops, or rubs. RESPIRATORY: Fair air entry bilaterally. No wheezes, rales, or rhonchi. GASTROINTESTINAL: Abdomen soft, non-tender, nondistended. Positive bowel sounds MUSCULOSKELETAL: +1 pitting edema. Bilateral lower extremity Pedal pulses appreciated NEUROLOGICAL: Awake and alert. Moves all extremity. Normal speech.no focal neurological deficit : Scrotum swelling much improved, nontender Procedures None A/P Problem List: (1) Acute exacerbation of CHF (congestive heart failure) ICD Code: I50.9 Status: Acute (2) Testicle swelling ICD Code: N50.89 Status: Acute (3) Bilateral lower extremity edema ICD Code: R60.0 Status: Acute Assessment and Plan 04/28/16: BMP trending down 1095 today, Psychiatrist asked the patient no need for psychiatry intervention, however must occupation is having agitation and frustration due to perceptual and sensory limitation D/W skilled nursing case manager, patient doesn't have a place he lives in a motel, he is from [place], she talk to his family over there, to have somebody to come over to take care of the patient, he still under observation status, skilled nursing case manager will advise me about further addressing of his status. Order PT OT, walk test, we'll continue diuresing, hopefully able to discharge in 1 or 2 days if able to arrange safe discharge for him 04/29/16: Continue diuretic management, monitor BMP and BNP, scrotal swelling worsened today Placement issue patient lives alone in am room in a motel, he has a perceptual and sensible limitation, it doesn't seem to be safe to be discharged on his own, discussed with skilled nursing case manager extensively, she is working on contacting his family 04/30/16: Patient medically seems to be stable to be discharged on fluid restriction and Lasix twice a day, he may benefit from low dose spironolactone however due to potassium being about 4.5 we'll hold on that and will leave it for primary care to initiated if potassium level have room for it, BMP to be checked in 1 week and patient to follow up with his PCP in one week 05/01/16: Doing well, proceed with discharge with home health care today A/P 66-year-old man who is a poor historian with a history of CHF, hypertension, COPD presented with: CHF exacerbation with anasarca Images reviewed: Chest x-ray shows moderate pleural effusion on the left with minimal failure -In tinea with Lasix 40 mg BID -Fluid restriction 1500 , -2-D echo showed ejection fraction 30-35% -Restart home medications Coreg -Monitor BMP and BNP daily, with electrolyte, monitor I&O I discussed with the patient in length about his low ejection fraction and indication of ICD, he definitely does not want to pursue this at this point, he wants to be discharged and 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 Diffusely heterogeneous testicular echotexture, particularly on the right without discrete mass. Due to chronicity and not improving on outpatient diuresis -appreciate urology consultations, recommended follow-up in 6 weeks Lower extremity edema, likely due to CHF Labs reviewed BNP 1675 -Continue diuretics, daily monitor BMP and BNP DVT prophylaxis: Heparin Consult placed to case management for assistance in placement. Windy Abreu MD May 01, 2016 09:16
== END 2016-05-01 10:58 | disposition home or self-care (01) ==
LOC: NEPA 11:59 → NEDA 18:33 → NEPHCDU 23:14
PROVIDERS: ADMIT Hospitalist; ATTEND Hospitalist
DX: I50.9 Heart failure, unspecified (principal); N50.89 Other specified disorders of the male genital organs; E11.65 Type 2 diabetes mellitus with hyperglycemia; F43.24 Adjustment disorder with disturbance of conduct; E87.1 Hypo-osmolality and hyponatremia; J44.1 Chronic obstructive pulmonary disease with (acute) exacerbation; I10 Essential (primary) hypertension; R94.31 Abnormal electrocardiogram [ECG] [EKG]; H54.0 Blindness, both eyes; H91.90 Unspecified hearing loss, unspecified ear; Z59.0 Homelessness; Z95.2 Presence of prosthetic heart valve; Z91.19 Patient's noncompliance with other medical treatment and regimen; Z79.4 Long term (current) use of insulin; Z79.01 Long term (current) use of anticoagulants
CPT/HCPCS: 71010; 76870; 80048; 80051; 80076; 81001; 82550; 82948; 83036; 83735; 83880; 84100; 84484; 85025; 85610; 85730; 93005; 93306; 93975; 94620; 96374; 97163; 99285; G0378; G8987; G8988; J1644; J1815; J1940